=== PATIENT | male | born 1965 | race Caucasian/White ===

== ENCOUNTER 2019-06-24 22:10 | Emergency (ER) | payer BC ==
[~2019-06-24] VITALS: Ht 175.3 cm; Wt 74.5 kg
[2019-06-24 22:15] VITALS: TEMP 97.4
[2019-06-24 22:38] LABS: BASO # 0.1 (0.0-0.2); BASO % 1.1 % (0.0-2.0); EOS # 0.2 (0.0-0.7); EOS % 2.4 % (0-4.0); GRAN # 3.5 (1.4-6.5); GRAN % 49.3 % (42.2-75.2); HEMATOCRIT 38.9 % (42.0-52.0); HEMOGLOBIN 13.1 g/dl (13.5-18.0); LYMPH # 2.7 (1.2-3.4); LYMPH % 37.4 % (20.0-51.0); MEAN CELL VOLUME 91 fl (80.0-100.0); MEAN CORPUSCULAR HEMOGLOBIN 31 pg (27.0-31.0); MEAN CORPUSCULAR HGB CONC 34 g/dl (33.0-37.0); MEAN PLATELET VOLUME 10.4 fl (7.4-10.4); MONO # 0.7 (0.1-0.6); MONO % 9.7 % (1.7-9.3); PLATELET COUNT 247 K/mm3 (130-400); RED BLOOD COUNT 4.26 M/mm3 (4.20-5.60); REDCELL DISTRIBUTION WIDTH-CV 13.2 % (11.5-14.5)
[2019-06-24 22:48] LABS: ALBUMIN 4.7 gm/dL (3.5-5.0); BILIRUBIN,TOTAL 0.5 mg/dL (0.0-1.0); CALCIUM 9.3 mg/dL (8.4-10.2); CREATININE, serum 1.21 (0.66-1.25); POTASSIUM 3.8 mmol/L (3.4-5.0); TOTAL PROTEIN 7.9 gm/dL (6.4-8.2)
[2019-06-25 01:21] VITALS: BP 106/84; PULSE 85
== END 2019-06-25 01:21 | disposition short-term general hospital (02) ==
LOC: COL.ER 22:10
PROVIDERS: Emergency Medicine
DX: S22.42XA Multiple fractures of ribs, left side, initial encounter for closed fracture (principal); S36.039A Unspecified laceration of spleen, initial encounter; R40.2412 Glasgow coma scale score 13-15, at arrival to emergency department; W55.22XA Struck by cow, initial encounter
CPT/HCPCS: J2405; J3010; J7030; Q9967

== ENCOUNTER 2019-07-13 09:02 | Outpatient (RCR) | payer OTHER | END 2019-10-02 | disposition home or self-care (01) | LOC: WSOH | DX: S22.42XA Multiple fractures of ribs, left side, initial encounter for closed fracture (principal); S36.039A Unspecified laceration of spleen, initial encounter; Z90.89 Acquired absence of other organs; Z98.890 Other specified postprocedural states; W17.89XA Other fall from one level to another, initial encounter ==

== ENCOUNTER 2019-10-20 10:50 | Outpatient (RCR) | payer OTHER | END 2019-10-23 10:07 | disposition still patient (30) | LOC: WSOH 10:50 | DX: S36.039D Unspecified laceration of spleen, subsequent encounter (principal); S22.42XD Multiple fractures of ribs, left side, subsequent encounter for fracture with routine healing; Z90.89 Acquired absence of other organs; Z98.890 Other specified postprocedural states ==